=== PATIENT | male | born 1955 | race Asian ===

== ENCOUNTER 2025-02-02 15:43 | Emergency (ER) | payer OTHER ==
[~2025-02-02] VITALS: Ht 175.3 cm; Wt 72.3 kg
[~2025-02-02 15:43] MED LIST: PANT-47 PO
[2025-02-02 16:08] VITALS: BP 125/69; PULSE 78; RESP 12; O2SAT 96
--- NOTE | 2025-02-02 17:12 | RADIOLOGY REPORT ---
EXAM: DI SHOULDER, COMPLETE (MIN 2 VWS) HISTORY: Fall/pain. COMPARISON: None available. TECHNIQUE:: 3 views of the right shoulder were obtained. FINDINGS: No acute fracture or dislocation is seen. No suspicious lytic or osseous lesion is identified. Mild arthritis of the acromioclavicular and glenohumeral joints. Marked narrowing of the acromiohumeral interval, which is suggestive of chronic rotator cuff pathology. No calcifications about the humeral head to suggest rotator cuff calcific tendinopathy. The overlying soft tissues are unremarkable. IMPRESSION: 1. No acute fracture or dislocation. 2. 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
--- NOTE | 2025-02-02 17:14 | RADIOLOGY REPORT ---
EXAM: DI WRIST, COMPLETE (3VW MIN) CLINICAL HISTORY: fALL/PAIN COMPARISON: None TECHNIQUE: DI WRIST, COMPLETE (3VW MIN) Findings/ There is no acute fracture or subluxation. There is severe joint space narrowing with subchondral sclerosis and degenerative osteophytes involving the 1st carpometacarpal joint. Impression: No acute osseous abnormality Severe 1st carpometacarpal joint degenerative change
--- NOTE | 2025-02-02 17:15 | RADIOLOGY REPORT ---
EXAM: DI KNEE, COMP 4 VW MIN HISTORY: fALL/PAIN TECHNIQUE: DI KNEE, COMP 4 VW MIN, left knee COMPARISON: None FINDINGS: Mild cortical thickening with irregularity of the proximal fibular neck. The joint spaces within the 2 via femoral and patellofemoral joints are maintained. No joint effusion. Minimal superior pole enthesopathy. IMPRESSION: Cortical thickening with irregularity of the proximal fibular neck suspicious for old fracture, though recommend correlation with point tenderness and history.
--- NOTE | 2025-02-02 17:18 | RADIOLOGY REPORT ---
LEFT FINGER(S) INDICATION: Fall/pain. TECHNICAL DATA: Frontal view of the left hand and lateral and oblique views of the left long finger were obtained. COMPARISON: None available. FINDINGS: Acute [id number] displaced fracture of the tip of the 3rd distal phalanx associated with mild soft tissue swelling/a suspected laceration. No radiopaque foreign body. No significant degenerative changes. Osseous structures are demineralized. IMPRESSION: Acute [id number] displaced fracture of the tip of the 3rd distal phalanx associated with mild soft tissue swelling/a suspected laceration. No radiopaque foreign body.
--- NOTE | 2025-02-02 18:34 | Physician Documentation ---
History of Present Illness General Chief Complaint: See Chief Complaint Stated Complaint: MULTIPLE MED COMPLAINT Time Seen by MD: 16:22 Primary Medical Doctor: None History of Present Illness Initial Comments [age] year male right-hand dominant had a fall while at work yesterday. 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 Delayed presentation to the emergency department. Presented to the work comp Clinic today and was referred to the emergency department. From triage patient to have x-rays obtained. Reports that his tetanus is up-to-date. There is obvious deformity to the distal phalanx of the left 3rd finger. Medication Reconciliation Allergies: Coded Allergies: No Known Allergies (Unverified , 02/02/25) Scheduled Cephalexin*Monohydrate* (Keflex*), 1 CAP PO TID Pantoprazole Sodium (PROTONIX tablet), 40 MG PO DAILY Past Medical History Past Medical History: Hernia Alcohol Use: Rarely Drug Use: none Lives In: Home Occupation: employed Review of Systems All Other Systems at this time: Reviewed and Negative Musc: Reports: joint pain, joint swelling Musculoskeletal Nail avulsed Physical Exam Physical Exam Vital Signs: RN Vital Signs have been reviewed: Yes, Temperature: 98.9, Source: Temporal, Heart Rate: 78, Respiratory Rate: 12, BP: 125/69, Pulse Oximetry: 96, Weight: 72.300 Oxygen Flow Rate: 0 General Appearance: alert, WD/WN, mild distress Head: normal inspection Face: normal inspection Pupils/EOM/Fundus: PERRLA Neck: non-tender Respiratory: lungs clear Chest: no accessory muscle use Cardiovascular: normal peripheral pulses Gastrointestinal: non-tender Extremities Nail is nearly completely avulsed from the nail bed of the left 3rd middle finger, superficial laceration to the lateral border. Swelling and ecchymosis. Left knee pain without ecchymosis Left wrist pain without reduced range of motion Right shoulder pain without reduced range of motion Neurologic: oriented x4 Motor / Sensory: no motor deficit Psychiatric: normal mood/affect Skin: normal color Procedures Additional Procedures Procedure Note Nail Attachment: Anesthetized with 1 cc 1% Lidocaine Wound cleansed Nail reseated Secured with 2 x 4.0 Nylon sutures Xeroform gauze Finger splint applied Progress Results/Orders Results/Orders Completed Orders - PAULINA MALIK PAC Lidocaine 1% 30ml Vial (Xylocaine 1% Via (02/02/25 18:27) Cefazolin Im Kit ([facility] Only) (Ancef Im Kit (02/02/25 18:30) Vital Signs 02/02/25 02/02/25 16:08 19:11 Temp 98.9 98.9 Pulse 78 Resp 12 B/P (MAP) 125/69 Pulse Ox 96 O2 Flow Rate 0 Medical Decision Making Additional information obtaine: N/A Findings ED course: X-ray imaging obtained. Fracture noted to the distal 3rd phalanx. The nail we will need to be reattached after aggressive and copious irrigation. IM Ancef. Splint applied to the finger. See procedure note. Aftercare instructions to follow up with worker's comp for orthopedic referral. He will be discharged with antibiotic prescription & with pain management. No tetanus needed. All x-rays resulted and reviewed Differential Diagnosis Fractures versus the open fractures, sprains and strains, contusions, abrasions. Departure Disposition: HOME / SELF CARE / HOMELESS Impression: Primary Impression: Open fracture of distal phalanx Additional Impressions: Nail avulsion, finger Qualified Codes: S61.309A - Unspecified open wound of unspecified finger with damage to nail, initial encounter Injury of musculoskeletal system Condition: Stable Additional Instructions: Today in the emergency department you had multiple x-rays obtained. You have a fracture your left distal phalanx. You had your nail reattached and sutured. You received antibiotic injection and are requested to obtain your prescriptions and begin as directed. Please follow up with worker's comp Clinic [facility] for referral to Orthopedics and definitive management. You have been taken off work for 72 hours. Please return to the emergency department in the interim as needed. Referrals: NO PRIMARY CARE PROVIDER (PCP) Prescriptions Cephalexin*Monohydrate* (Keflex*) 500 Mg Capsule 1 CAP PO TID, #21 CAP Prov: PAULINA MALIK PAC 02/02/25 Education Educated: Patient Educated regarding: diagnosis, treatment, prognosis, need for follow up Signature Scribe Signature: . Attestation: . PAULINA MALIK PAC Feb 02, 2025 18:34
[2025-02-02] MEDS: LIDOcaine 1% 30ml preserv. free vial IJ STA (18:42)
[2025-02-02] MEDS: ceFAZolin 1gm IM kit IM ONE (18:57)
[2025-02-02 19:11] VITALS: TEMP 98.9
[2025-02-02] MEDS ORDERED: CEPH-585 PO (19:15)
== END 2025-02-02 19:22 | disposition home or self-care (01) ==
LOC: ER 15:44
DX: S62.633A Displaced fracture of distal phalanx of left middle finger, initial encounter for closed fracture (principal); Z79.899 Other long term (current) drug therapy; W18.39XA Other fall on same level, initial encounter; Y93.89 Activity, other specified; Y92.89 Other specified places as the place of occurrence of the external cause; Y99.0 Civilian activity done for income or pay
CPT/HCPCS: 11760; 73030; 73110; 73140; 73564; 96372; 99285; A6222; J0690; A6258; A6449